=== PATIENT | female | born 1980 | race Caucasian/White ===

== ENCOUNTER 2025-04-29 07:45 | Outpatient (CLI) | payer OTHER, SELFPAY ==
--- NOTE | ~2025-04-29 | MR_ITS ---
EXAMINATION: MR cervical spine wo con DATE: 04/29/2025 08:34 INDICATION: Status post spinal fusion with limited range of motion and loosening screws in the cervical spine TECHNIQUE: Magnetic resonance imaging (MRI) of the cervical spine was performed without intravenous contrast. Sequences included sagittal T2-weighted FSE, sagittal fluid sensitive FSE STIR, sagittal T1-weighted FSE, axial MERGE and axial T2-weighted FSE. COMPARISON: None FINDINGS: Postoperative change of prior C3-C7 anterior spinal fusion with straightening of the normal lordosis. There is interbody fusion devices at C3-C4 C5-C6 and C6-C7. There is decreased AP width of the C4-C6 vertebral bodies which suggests diffusion may have occurred during childhood. There is additional metallic magnetic field artifact associated with bilateral vertical rods and lateral mass and pedicle screws for an extensive cervical and upper thoracic instrumented posterior spinal fusion which begins at C2 and extends caudally to at least T6 on the allied health professional localizer images. There is a region of low signal intensity potential right metallic magnetic field artifact located within the anterior aspect of the central canal. This begins centrally at the level of C5-C6 and extending cephalad lateral to the left lateral recess and entrance to the left C5-C6 neural foramen. Vertebral body heights are normal. T1 hyperintense hemangioma at the T2 vertebral body. Marrow signal is otherwise unremarkable. C2-C3 disc space and the disc space at C7-T1 and visualized upper thoracic spine are normal. No evident disc bulges. Central canal is widely patent throughout. No definitive neural foraminal stenosis identified in the cervical or upper thoracic spine although assessment is limited by the magnetic field artifact from the posterior instrumentation. Cord signal intensity is normal. Visualized cervical soft tissues are unremarkable. IMPRESSION: 1. C3-C7 anterior spinal fusion and instrumented posterior spinal fusion extending from C2 through at least T6 caudal margin of imaging on the allied health professional localizer images. 2. Indeterminate small region of absent signal in the anterior central canal at level of C5-C6 which could be related to to magnetic magnetic field artifact or calcification. Consider correlation with cervical spine CT. Reviewed, dictated and finalized at location A. IMPRESSION: 1. C3-C7 anterior spinal fusion and instrumented posterior spinal fusion extend ing from C2 through at least T6 caudal margin of imaging on the allied health professional localizer images. 2. Indeterminate small region of absent signal in the anterior central canal at level of C5-C6 which could be related to to magnetic magnetic field artifact o r calcification. Consider correlation with cervical spine CT.
--- NOTE | ~2025-04-29 | CT_ITS ---
EXAMINATION: CT thoracic spine wo con COMPARISON: None HISTORY: Other secondary kyphosis, thoracolumbar TECHNIQUE: Axial images were obtained through the spine without IV contrast. Coronal, sagittal reconstruction images were obtained from the axial views. CT scan performed using dose optimization techniques including the following automated exposure control; adjustment of mA and/or kV; use of iterative reconstruction technique. Automatic exposure control was used to reduce radiation dose. Permanent radiation dose record is archived to PACS. FINDINGS: There are postsurgical changes with posterior fixation of L1, T12, T11, T10, T9, T8, T7, T6, T5, T4, T3, T2, T1 and C7, the hardware is intact with no lucency around the screws, there is no acute fracture or subluxation identified with mild kyphosis noted. Moderate loss of disc height throughout with disc prosthesis noted at T12-L1. Soft tissues unremarkable. Impression: Postsurgical changes delineated above Reviewed, dictated and finalized at location P. Impression: Postsurgical changes delineated above
== END 2025-04-29 07:46 | disposition home or self-care (01) ==
PROVIDERS: PCP Orthopaedic Surgery Orthopaedic Surgery of the Spine; Visit Provider Orthopaedic Surgery Orthopaedic Surgery of the Spine
DX: Z98.1 Arthrodesis status (principal); M40.15 Other secondary kyphosis, thoracolumbar region
CPT/HCPCS: 72128; 72141